=== PATIENT | female | born 1950 | race Caucasian/White ===

== ENCOUNTER 2018-04-02 21:47 | Emergency (ER) | payer OTHER, BC ==
[~2018-04-02] VITALS: Ht 172.7 cm; Wt 107.5 kg
[~2018-04-02 21:47] MED LIST: CITALOPRAM HBR20 M1 PO; K-DUR10 ME1; LOSARTAN-HCTZ1 EAC1; NORVASC5 MG PO; PHENTERMINE H37.5 MG; SYMBICORT60 INHALAT; ZANTAC150 MG
[2018-04-02 22:16] LABS: HEMATOCRIT 45.2 % (36.0-46.0); HEMOGLOBIN 16.1 G/DL (11.9-15.5); MCH 31.8 PG (29.0-34.0); MCHC 35.6 G/DL (30.0-36.0); MCV 89.3 FL (83-99); PLATELET COUNT 362 K/uL (156-360); RBC DIS.WIDTH-CV 12.8 % (11.8-14.6); RBC DIS.WIDTH-SD 41.6 % (39-53); RED BLOOD COUNT 5.06 M/uL (3.80-5.20); WHITE BLOOD COUNT 8.8 K/uL (4.1-10.2)
[2018-04-02 22:28] LABS: CHLORIDE 94 mEq/L (99-109); GLUCOSE 116 mg/dL (70-99); POTASSIUM 3.6 mEq/L (3.7-5.4); SODIUM 134 mEq/L (136-147)
[2018-04-02 22:32] LABS: CREATININE 0.7 mg/dL (0.6-1.3); GFR ESTIMATE (CALCULATED) > 59 mL/min/
[2018-04-02 22:33] LABS: UREA NITROGEN (BUN) 6 mg/dL (9-23)
[2018-04-02 22:36] LABS: TROP-I INTERPRETATION NEGATIVE; TROPONIN-I < 0.01 ng/mL (0.0-0.30)
[2018-04-03 01:26] VITALS: BP 169/96
== END 2018-04-03 01:27 | disposition home or self-care (01) ==
LOC: EME 21:47
PROVIDERS: Emergency Medicine
DX: R00.2 Palpitations (principal); J84.10 Pulmonary fibrosis, unspecified; R06.02 Shortness of breath; E87.6 Hypokalemia; I10 Essential (primary) hypertension; J45.909 Unspecified asthma, uncomplicated; Z82.49 Family history of ischemic heart disease and other diseases of the circulatory system
CPT/HCPCS: 71046; 80048; 83735; 84484; 85027; 85379; 93005; 99281; 99284